=== PATIENT | male | born 1955 | race African-American/Black ===

== ENCOUNTER 2019-06-07 10:20 | Outpatient (CLI) | payer MEDICARE ==
--- NOTE | 2019-06-07 12:36 | ULT ---
Exam: Bilateral renal ultrasound complete including color and spectral Doppler imaging: HISTORY: Chronic kidney disease, hypertension FINDINGS: Right kidney measures 10.6 x 5.6 x 6.0 cm contains several cysts, the largest up to 4.7 cm. No renal hydronephrosis. Left kidney measures 11.9 x 5.9 x 5.7 cm with a 0.9 x 1.2 cm cyst. No postvoid residual. Urinary bladder is unremarkable. Vascular duplex including color and spectral Doppler imaging: Right and left renal artery/aortic ratios are within normal limits. Resistive indices are within normal limits. No evidence for abnormal increased renal artery velocities. IMPRESSION: Bilateral renal cysts. No renal hydronephrosis. No evidence for significant renal artery stenosis.
== END 2019-06-07 10:21 | disposition home or self-care (01) ==
LOC: ULT 10:20
PROVIDERS: ATTEND Internal Medicine Nephrology
DX: I12.9 Hypertensive chronic kidney disease with stage 1 through stage 4 chronic kidney disease, or unspecified chronic kidney disease (principal); N18.2 Chronic kidney disease, stage 2 (mild)
CPT/HCPCS: 36415; 76700; 76770; 80048; 81001

== ENCOUNTER 2019-12-13 11:37 | Outpatient (CLI) | payer MEDICARE ==
--- NOTE | 2019-12-13 12:02 | RAD ---
EXAM: Chest 2 views: HISTORY: Cough since September COMPARISON: None. FINDINGS: There is a normal-sized cardiomediastinal silhouette. There is no evidence of consolidation, mass, or pleural effusion. Degenerative changes are seen in the spine. IMPRESSION: No evidence of acute cardiopulmonary disease
== END 2019-12-13 11:38 | disposition home or self-care (01) ==
LOC: SCSRAD 11:37
PROVIDERS: ATTEND Family Medicine
DX: R05 Cough (principal)
CPT/HCPCS: 71046

== ENCOUNTER 2020-05-31 11:00 | Outpatient (CLI) | payer MEDICARE | END 2020-05-31 11:01 | disposition home or self-care (01) | LOC: DTY/OP 11:00 | PROVIDERS: ATTEND Family Medicine | DX: E78.5 Hyperlipidemia, unspecified (principal); I12.9 Hypertensive chronic kidney disease with stage 1 through stage 4 chronic kidney disease, or unspecified chronic kidney disease; E11.22 Type 2 diabetes mellitus with diabetic chronic kidney disease; N18.9 Chronic kidney disease, unspecified | CPT/HCPCS: 97802 ==